=== PATIENT | male | born 1960 | race Caucasian/White ===

== ENCOUNTER 2019-03-07 13:49 | Day surgery (SDC) | payer BC ==
[~2019-03-07 13:49] MED LIST: CEFAZOLIN SODIUM 2 GM in DEXTROSE 5%-WATER 100 ML IV PRN
[2019-03-07 15:35] LABS: ABSOLUTE EOSINOPHILS # (AUTO) 0.2 10^3/uL (0.0-0.6); ABSOLUTE LYMPHOCYTES (AUTO) 1.1 10^3/uL (0.5-4.7); ABSOLUTE MONOCYTES (AUTO) 0.4 10^3/uL (0.1-1.4); ABSOLUTE NEUT (AUTO) 2.9 10^3/uL (1.7-8.2); BASOPHILS % (AUTO) 0.7 % (0-2); EOSINOPHILS % (AUTO) 3.9 % (0-6); HEMATOCRIT 45.5 % (37.9-51.0); HEMOGLOBIN 15.6 g/dL (13.5-17.0); LYMPHOCYTES % (AUTO) 24.5 % (13-45); MEAN CORPUSCULAR HEMOGLOBIN 30.1 pg (27.0-33.4); MEAN CORPUSCULAR HGB CONC 34.3 g/dL (32.0-36.0); MEAN CORPUSCULAR VOLUME 88 fl (80-97); MONOCYTES % (AUTO) 7.9 % (3-13); PLATELET COUNT 211 10^3/uL (150-450); RED BLOOD COUNT 5.19 10^6/uL (4.35-5.55); RED CELL DISTRIBUTION WIDTH 13.5 % (11.5-14.0); TOTAL CELLS COUNTED % (AUTO) 100 %; WHITE BLOOD COUNT 4.7 10^3/uL (4.0-10.5)
--- NOTE | 2019-03-07 15:54 | RADIOLOGY REPORT (SQ) ---
EXAM DESCRIPTION: CHEST SINGLE VIEW COMPLETED DATE/TIME: 03/07/2019 3:11 pm REASON FOR STUDY: PRE OP COMPARISON: None. EXAM PARAMETERS: NUMBER OF VIEWS: One view. TECHNIQUE: Single frontal radiographic view of the chest acquired. RADIATION DOSE: NA LIMITATIONS: None. FINDINGS: LUNGS AND PLEURA: No opacities, masses or pneumothorax. No pleural effusion. MEDIASTINUM AND HILAR STRUCTURES: No masses. Contour normal. HEART AND VASCULAR STRUCTURES: Heart normal in size. Normal vasculature. BONES: No acute findings. HARDWARE: None in the chest. OTHER: No other significant finding. IMPRESSION: NO ACUTE RADIOGRAPHIC FINDING IN THE CHEST. TECHNICAL DOCUMENTATION: JOB ID: [id number] [employer]- All Rights Reserved Reading location - IP/workstation name: [email or web address]
[2019-03-07 15:57] LABS: ANION GAP 8 (5-19); BLOOD UREA NITROGEN 14 mg/dL (7-20); CALCIUM 9.5 mg/dL (8.4-10.2); CARBON DIOXIDE 27 mmol/L (22-30); CHLORIDE 102 mmol/L (98-107); GLUCOSE 97 mg/dL (75-110); POTASSIUM 4.3 mmol/L (3.6-5.0)
[2019-03-07] MEDS ORDERED: MIDAZOLAM 2 MG/2 ML INJ ONE ×2 (16:43→18:02)
[2019-03-07] MEDS ORDERED: MIDAZOLAM 2 MG/2 ML INJ IV PRN (17:00)
[2019-03-07] MEDS ORDERED: LIDOCAINE 1% INJ-PF (10 MG/ML) 30 ML SDV ONE (17:11)
[2019-03-07] MEDS ORDERED: FENTANYL CITRATE INJ/PF 100 MCG/2 ML AMPUL ONE (18:02)
[2019-03-07] MEDS ORDERED: PROPOFOL INJ 200 MG/20 ML VIAL IV ONE (18:03)
[2019-03-07] MEDS ORDERED: FENTANYL CITRATE INJ/PF 100 MCG/2 ML AMPUL IV PRN ×3 (18:41)
[2019-03-07] MEDS ORDERED: ONDANSETRON HCL INJ/PF 4 MG/2 ML SDV IV PRN (18:41)
[2019-03-07] MEDS ORDERED: DIPHENHYDRAMINE HCL 50 MG/ML VIAL IV PRN (18:41)
[2019-03-07] MEDS ORDERED: MEPERIDINE HCL/PF INJ 25 MG/1 ML DISP.SYRIN IV PRN (18:41)
[2019-03-07] MEDS ORDERED: PROMETHAZINE HCL INJ 25 MG/1 ML VIAL IV PRN ×2 (18:41)
[2019-03-07] MEDS ORDERED: OXYCODONE-ACETAMINOPHEN 5-325 MG TABLET PO PRN (19:14)
[2019-03-07] MEDS ORDERED: MORPHINE SULFATE 10 MG/ML INJ IV PRN (19:14)
--- NOTE | 2019-03-07 19:15 | Discharge Summary ---
Discharge Summary (SDC) - Discharge Final Diagnosis: Left index extensor tendon laceration Date of Surgery: 03/07/19 Condition: Good Treatment or Instructions: Schedule Follow Up w/ Dr. Rikki Mir @ [facility] to be seen in 10-14 days or as scheduled [place]: [place]: [place]: Ice and elevate Keep splint clean/dry/intact, do not remove. If your fingers become numb please unwrap the Camilo wrap but leave the splint in place, if the sensation does not return within 30 minutes please return to the emergency department. Please use ibuprofen (Motrin or Advil) 600-800 mg every 8 hours as needed for pain or fever DO NOT TAKE w/ TORADOL may use once TORADOL complete. You may also use acetaminophen (Tylenol) 1000 mg every 4-6 hours as needed for pain or fever. Please be aware that many medications contain acetaminophen, do not exceed a total of 1000 mg of acetaminophen every 6 hours. If ibuprofen and acetaminophen are not sufficient for your pain you may take the Percocet/[place]righton. Please be aware that the Percocet/Brighton does contain Tylenol. Stool softener of choice when on pain medication. USE OF [id number] IBUPROFEN: Ibuprofen (Advil, Nuprin, Medipren, Motrin IB) is a medication for fever and pain control. In addition, it has anti- inflammatory effects which may be beneficial, especially in the treatment of injuries. It's best to take ibuprofen with food. Persons with ulcer disease or allergy to aspirin should notify their physician of this before taking ibuprofen. Ibuprofen can be given every four to six hours, for a total of four doses daily. Age Pain or fever dose Antiinflammatory dose 6-8 yr 200 mg (1 tab) 200 mg (1 tab) 9-11 yr 200 mg (1 tab) 200-400 mg (1-2 tab) 11-14 yr 200-400 mg (1-2 tab) 400 mg (2 tab) 15-adult 400 mg (2 tab) 600 mg (3 tab) ORAL NARCOTIC MEDICATION: You have been given a prescription for pain control. This medication is a narcotic. It's best taken with food, as nausea can result if taken on an empty stomach. Don't operate machinery or drive within six hours of taking this medication. Do not combine this medicine with alcohol, or with any medication which can cause sedation (such as cold tablets or sleeping pills) unless you get permission from the physician. Narcotics tend to cause constipation. If possible, drink plenty of fluids and eat a diet high in fiber and fruits. Please be aware that prescription narcotics also have the potential for abuse. People become addicted to these medications because of the general sense of wellbeing that they induce. This feeling along with a significant reduction in tension, anxiety, and aggression provides a stimulating seductive quality to these drugs. Once your pain is under control, we encourage you to discard your unused narcotics. Referrals: RENETTA LOPEZ PA-C [Primary Care Provider] - Discharge Diet: As Tolerated Respiratory Treatments at Home: Deep Breathing/Coughing Discharge Activity: No Lifting Over 10 Pounds, No Lifting/Push/Pulling Report the Following to Your Physician Immediately: Fever over 101 Degrees, Unusual Bleeding, Redness, Swelling, Warmth, Increased Soreness
--- NOTE | 2019-03-07 19:18 | Operative Report ---
Operative Report DATE OF SURGERY: 03/07/19 PREOPERATIVE DIAGNOSIS: Left index finger extensor tendon laceration POSTOPERATIVE DIAGNOSIS: Same plus PIP joint synovitis OPERATION: Repair of central slip left index finger. Left index PIP joint synovectomy SURGEON: ALEX STUART ANESTHESIA: LMAC COMPLICATIONS: None ESTIMATED BLOOD LOSS: Minimal PROCEDURE: Indication for above procedure: 58-year-old male who sustained laceration to his left index finger. Patient had delayed follow-up but continued to have pain and inability to fully straighten his finger. At that point we discussed treatment options conservative management was attempted but without success and thus decision was made to proceed with operative intervention. Risk benefits were explained patient verbalized understanding consented for surgical procedure. Procedure in detail: Patient was seen and evaluated in the preoperative holding area. The LEFT upper extremity was initialized and marked. Patient received 2g of Ancef IV for bacterial prophylaxis. Patient was taken back to the operative room where transferred to the operative table. Once they were adequately anesthetized a nonsterile tourniquet was placed on the upper extremity. A surgical team debriefing was performed ensuring all instrumentation was available, the surgical procedure was discussed with possible concerns reviewed. A digital block was performed utilizing 10 mL of 1% lidocaine without epinephrine. The upper extremity was prepped with Betadine and draped in a sterile fashion. A timeout was done identifying correct patient, procedure and extremity everyone in attendance agree with this and verbalized no concerns. Digital tourniquet was placed Patient's previous laceration was opened and extended proximally and distally. Blunt dissection was performed. There was synovial fluid encountered after skin incision. Any small peripheral veins were coagulated with bipolar cautery. Extensor tendon was tenolysis proximally and distally. There was complete transverse laceration of the central slip at the PIP joint. Fairly significant amount of PIP joint synovitis was encountered and PIP joint synovectomy was performed. Tissue was sent to pathology and microbiology for definitive diagnosis. Wound was copiously irrigated with normal saline. There was no evidence of bone involvement. The central slip was then reapproximated with 4-0 Fiber Loop suture utilizing modified Lieberman stitch. This was then reinforced with a running Silverskiold stitch with 4-0 FiberWire. This successfully reapproximated the extensor tendon. Passive flexion without gapping was achieved to 35degrees. Extensor tendon repair did correct patient's hyperextension deformity of the DIP joint. Wound was copiously irrigated with normal saline. Skin incision was closed with interrupted 4-0 nylon suture. Wound was dressed Xeroform & 4 x 4's. Patient was placed in a radial gutter splint maintaining full extension of the IP joint leaving DIP joint free to begin range of motion exercises. Sponge counts, instrument counts, needle counts counts were correct. Patient was then awoken from anesthesia. Transferred from the operating room table to the operating room stretcher. There was no intraoperative complications patient tolerated procedure well stable to PACU. Postoperative plan: Patient will follow-up as scheduled for wound check. We will be seen in occupational therapy 10 days postoperatively and fit for a thermoplastic splint as per central slip repair protocol and begin DIP joint range of motion.
[2019-03-07] MEDS ORDERED: OXYCODONE-ACETAMINOPHEN 5-325 MG TABLET ONE (20:10)
[2019-03-07 21:10] VITALS: BP 135/94
--- NOTE | 2019-03-08 14:27 | EKG REPORT ---
SEVERITY:- ABNORMAL ECG - SINUS RHYTHM RBBB AND LAFB : Confirmed by: Aye Daley 08-Mar-2019 14:26:21
== END 2019-03-07 21:01 | disposition home or self-care (01) ==
LOC: OROUT 13:49
PROVIDERS: ATTEND Orthopaedic Surgery
DX: S66.321A Laceration of extensor muscle, fascia and tendon of left index finger at wrist and hand level, initial encounter (principal); S61.211A Laceration without foreign body of left index finger without damage to nail, initial encounter; W45.8XXA Other foreign body or object entering through skin, initial encounter; M65.842 Other synovitis and tenosynovitis, left hand
CPT/HCPCS: 26140; 26426; 36415; 87070; 87205; 85025; 87075; 80048; 88305 ×2; 71045; 93005; 93010; 01810; J2250; J0690; J3010; J3490; J7060; J2704; 1810